=== PATIENT | male | born 1970 | race Caucasian/White ===

== ENCOUNTER 2022-11-28 08:09 | Day surgery (SDC) | payer OTHER ==
[2022-11-25 15:17] VITALS: BMI 18.4
[2022-11-28 08:33] VITALS: RESP 18
[2022-11-28] MEDS: KETOROLAC TROMETHAMINE 0.5% EYE DROP 1 DROP DROPS OD SCH ×3 (08:35→08:45)
[2022-11-28] MEDS: TROPICAMIDE 1% OPHTH SOLN 15 ML BOTTLE OD SCH ×3 (08:35→08:45)
[2022-11-28] MEDS: PHENYLEPHRINE 2.5% OPHTH SOLN 15 ML BOTTLE OD SCH ×3 (08:35→08:45)
[2022-11-28] MEDS: CYCLOPENTOLATE HCL 1% OPHTH SOLN 2 ML BOTTLE OD SCH ×3 (08:35→08:45)
[2022-11-28] MEDS: OFLOXACIN 0.3% OPHTHALMIC SOLUTION 5 ML BOTTLE OD SCH ×3 (08:35→08:45)
[2022-11-28] MEDS ORDERED: MIDAZOLAM HCL 2 MG/2 ML SINGLE DOSE VIAL ONE (09:45)
[2022-11-28] MEDS ORDERED: ACETAMINOPHEN 325 MG TABLET (FP) PO PRN (10:26)
[2022-11-28 11:31] VITALS: TEMP 98
[2022-11-28 11:33] VITALS: BP 114/69; PULSE 69
== END 2022-11-28 11:30 | disposition home or self-care (01) ==
LOC: FASU 08:09
PROVIDERS: ATTEND Ophthalmology
PROC: 08RJ3JZ Replacement of Right Lens with Synthetic Substitute, Percutaneous Approach (ICD-10-PCS; principal; 2022-11-28 10:08)
DX: H25.11 Age-related nuclear cataract, right eye (principal)
CPT/HCPCS: 66984; V2632